=== PATIENT | female | born 1970 | race Caucasian/White ===

== ENCOUNTER → 2020-10-14 11:48 | Outpatient (BNVA) | payer OTHER, SELFPAY | PROVIDERS: Visit Provider Nurse Practitioner Family | DX: Z20.822 Contact with and (suspected) exposure to COVID-19 (principal) | CPT/HCPCS: 87635 ==

== ENCOUNTER 2022-10-15 07:37 | Outpatient (CLI) | payer MEDICAID, SELFPAY ==
--- NOTE | 2022-10-15 07:52 | MM_ITS ---
WS: [id number] Bilateral screening 3D tomosynthesis digital mammogram, 10/15/2022 Clinical Data: SCREENING Comparison: None. Findings: The breast parenchymal pattern shows fibroglandular tissue. No spiculated masses or clustered calcifi cations are seen. There are no secondary signs of carcinoma. There is asymmetric tissue in the upper outer quadrant of the right breast. MM/[place] [id number] Impression: 1. Asymmetric breast tissue in upper-outer quadrant of the right breast and re commend compression views in the CC and ML projection, also right breast ultras ound. 2. Negative left breast BIRADS: 0-Incomplete: Need additional imaging evaluation FOLLOW UP: See Report The CAD unloading checker was used.
== END 2022-10-15 07:38 | disposition home or self-care (01) ==
PROVIDERS: PCP Nurse Practitioner Family; Visit Provider Nurse Practitioner Family
DX: Z12.31 Encounter for screening mammogram for malignant neoplasm of breast (principal); N64.89 Other specified disorders of breast
CPT/HCPCS: 77063; 77067

== ENCOUNTER 2022-10-18 09:23 | Outpatient (CLI) | payer MEDICAID, SELFPAY ==
--- NOTE | 2022-10-18 09:40 | CT_ITS ---
WS: [id number] LDCT LUNG CANCER SCREENING TECHNIQUE: Noncontrast CT of the chest with coronal and sagittal reformatted images. CLINICAL INFORMATION: NICOTINE DEPENDENCE COMPARISON: None. DLP: 51.31 mGy.cm DIvol: Mean CTDIvol: 0.80 (mGy) All CT scans at [facility] use at least one of these dose optimization techniques: automat ed exposure control; mA and/or kV adjustment per patient size (includes targeted exams where dose is matched to clinical indication); or iterative reconstruction. FINDINGS: Normal caliber thoracic aorta. No mediastinal or hilar lymphadenopathy. No axillary lymphadenopathy. Cholecystectomy clips. Postoperative changes gastric bypass. Surgical clips in the upper abdomen. Adr enal glands are normal. No acute pulmonary infiltrates. Numerous scattered bilateral subcentimeter pulmonary nodules largest measuring 5.3 mm LEFT upper lobe. No suspicious pulmonary parenchymal abnormalities. Small amount of cystic bronchiectasis in RIGHT upp er lobe anteromedially. Noncalcified nodule LEFT upper lobe anteriorly medially measuring 3.8 mm. Non calcified nodule LEFT lower lobe measuring 3.8 mm. A few tiny noncalcified nodules RIGHT upper lobe. 3.2 mm noncalcified nodule RIGHT upper lobe laterally. A few noncalcified subcentimeter nodules RIGHT lower lobe CT/CT lung screening [id number] IMPRESSION: LUNG-RADS: 2-Benign Appearance or Behavior FOLLOW UP: 12 Month: Continue annual screening with LDCT
== END 2022-10-18 09:24 | disposition home or self-care (01) ==
LOC: RAD 09:24
PROVIDERS: PCP Nurse Practitioner Family; Visit Provider Nurse Practitioner Family
DX: Z12.2 Encounter for screening for malignant neoplasm of respiratory organs (principal); F17.210 Nicotine dependence, cigarettes, uncomplicated
CPT/HCPCS: 71271

== ENCOUNTER 2022-11-18 09:59 | Outpatient (CLI) | payer MEDICAID, SELFPAY ==
--- NOTE | 2022-11-18 10:08 | MM_ITS ---
WS: [id number] Right breast diagnostic 3D tomosynthesis digital mammogram, 11/18/2022 Clinical Data: ABNORMAL MAMMO Comparison: Mammogram, 10/15/2022 Findings: The additional views of the upper outer quadrant right breast showed only asymmetric breast tissue. T here were no spiculated masses or clustered calcifications. There were no secondary signs of carcinom a. MM/[place] [id number] Impression: 1. Asymmetric breast tissue in upper outer quadrant of the right breast. 2. Right breast ultrasound will be performed. BIRADS: 2-Benign FOLLOW UP: See Report The CAD photo checker was used.
--- NOTE | 2022-11-18 10:08 | US_ITS ---
WS: [id number] Right breast ultrasound, 11/18/2022 Clinical Data: ABNORMAL MAMMO Comparison: Right breast mammogram, 11/18/2022 Findings: The upper outer quadrant of the right breast was scanned from the 9:00 to the 12:00 position. Only n ormal breast tissue is seen. There were no cysts or masses. No abnormal tissue was noted. US/US breast RT limited* [id number] Impression: 1. Asymmetric breast tissue in upper outer quadrant. 2. Recommend return to annual screening mammograms. BIRADS: 2-Benign FOLLOW UP: 1 Year Follow-up
== END 2022-11-18 10:00 | disposition home or self-care (01) ==
LOC: RAD 10:01
PROVIDERS: PCP Nurse Practitioner Family; Visit Provider Nurse Practitioner Family
DX: R92.8 Other abnormal and inconclusive findings on diagnostic imaging of breast (principal)
CPT/HCPCS: 76642; 77061; G0279

== ENCOUNTER 2023-08-29 10:41 | Oncology outpatient (recurring) (ONCR) | payer MEDICAID, SELFPAY ==
[2023-08-29 10:57] VITALS: BP 113/64; PULSE 62; RESP 16; TEMP 36.3; O2SAT 96
[2023-08-29] MEDS: sodium chloride 0.9% 250 ML 35 ML IV (11:27)
[2023-08-29 14:18] VITALS: BP 116/74; PULSE 71; RESP 16; TEMP 36.4; O2SAT 97
== END 2023-09-06 23:59 | disposition home or self-care (01) ==
LOC: ONCMED 10:42
PROVIDERS: PCP Nurse Practitioner Family; Visit Provider Internal Medicine Medical Oncology
DX: D50.9 Iron deficiency anemia, unspecified (principal)
CPT/HCPCS: 96365; J1756; J7050

== ENCOUNTER 2023-09-12 07:45 | Oncology outpatient (recurring) (ONCR) | payer MEDICAID, SELFPAY ==
[2023-09-12 08:14] VITALS: BP 114/76; PULSE 78; RESP 16; TEMP 36.8; O2SAT 97
[2023-09-12] MEDS: iron sucrose 100 MG in sodium chloride 0.9% (100 ml) 100 ML 200 MG IV (08:52)
[2023-09-12 09:30] VITALS: BP 103/67; PULSE 76; RESP 16; TEMP 37.1; O2SAT 96
== END 2023-10-07 23:59 | disposition home or self-care (01) ==
LOC: ONCMED 07:46
PROVIDERS: PCP Nurse Practitioner Family; Visit Provider Internal Medicine Medical Oncology
DX: D50.9 Iron deficiency anemia, unspecified (principal)
CPT/HCPCS: 96365; J1756

== ENCOUNTER 2023-10-19 16:03 | Outpatient (CLI) | payer MEDICAID, SELFPAY ==
--- NOTE | 2023-10-19 16:18 | CT_ITS ---
WS: [id number] CT CHEST CT-HIGH RESOLUTION, NONCONTRAST. HISTORY: Interstitial lung disease. Technique: High-resolution chest CT is performed in inspiration, expiration, supine and prone positio wilfredo. All CT scans at [facility] use at least one of these dose optimization techniques: automated exposure control; mA and/or kV adjustment per patient size (includes targeted exams where dose is mat ched to clinical indication); or iterative reconstruction. DLP: 860.92 mGy.cm COMPARISON: 10/18/2022 Findings: Lungs are well aerated and normally expanded. There are several scattered pulmonary nodules with the largest being 3 to 4 mm. These were also present on the study of 10/18/2022 without increase in size. Anterior RIGHT upper lobe hazy attenuation and mild bronchiectasis is reidentified. There i s an additional nodule at the lingula with groundglass attenuation. No honeycombing and there is no traction bronchiectasis in the lower lung olsen. Focal bronchiectasi s is reidentified in the anterior medial RIGHT upper lobe. No pleural effusion. Mild atherosclerosis aorta. Normal size pulmonary artery. No adenopathy identified on this unenhanced exam. During expiration there is diffuse volume loss with no air trapping. Prior cholecystectomy. LEFT renal pelvis is rotated anteriorly. There is a large extrarenal pelvis on the LEFT additional surgical changes in the LEFT upper abdomen are probably related to a gastric byp ass surgery. Mild thoracic spondylosis. CT/CT chest wo con [id number] Impression: 1. No honeycombing reticulonodular opacifications. 2. Unchanged focal bronchiectasis in the medial anterior RIGHT upper lobe. Thi s may be from a prior pneumonia. No additional bronchiectasis. 3. No adenopathy. 4. No air trapping. 5. Prior cholecystectomy and surgical changes associated the stomach. May be f rom gastric bypass surgery. 6. Multiple subcentimeter pulmonary nodules scattered throughout both lungs wi th no change since 10/18/2022.
== END 2023-10-19 16:04 | disposition home or self-care (01) ==
LOC: RAD 16:03
PROVIDERS: PCP Nurse Practitioner Family; Visit Provider Nurse Practitioner Family
DX: R91.8 Other nonspecific abnormal finding of lung field (principal); J41.0 Simple chronic bronchitis; Z72.0 Tobacco use; J47.9 Bronchiectasis, uncomplicated; Z98.890 Other specified postprocedural states; M47.814 Spondylosis without myelopathy or radiculopathy, thoracic region
CPT/HCPCS: 71250

== ENCOUNTER 2024-02-16 13:16 | Outpatient (CLI) | payer MEDICAID, SELFPAY ==
[2024-02-20 21:06] LABS: Beef (27) IgE 1.63 kU/L; Beef Class 2; Lamb (F88) IgE 1.27 kU/L; Lamb Class 2; Pork (F26) IgE 0.94 kU/L; Pork Class 2
== END 2024-02-16 13:17 | disposition home or self-care (01) ==
PROVIDERS: PCP Nurse Practitioner Family; Visit Provider Nurse Practitioner Family
DX: Z91.014 Allergy to mammalian meats (principal)
CPT/HCPCS: 36415; 86003; 86008

== ENCOUNTER 2024-05-07 08:48 | Outpatient (CLI) | payer MEDICAID, SELFPAY ==
--- NOTE | 2024-05-07 08:56 | MM_ITS ---
WS: [email or web address] BILATERAL SCREENING DIGITAL TOMOSYNTHESIS MAMMOGRAM WITH CAD HISTORY: SCREENING COMPARISON: 11/18/2022, 10/15/2022 Bilateral CC and MLO views with tomosynthesis and synthetic mammography submitted. Computer aided det ection analyzed. Breast composition: There are scattered areas of fibroglandular density. No suspicious masses, microc alcifications or architectural distortion. Dense band of fibroglandular tissue upper outer quadrant R IGHT breast is stable. No new area of suspicion or calcification. No distortion. MM/MM scr BI tomosynthesis [id number] IMPRESSION: BI-RADS: 2 - Benign. FOLLOW UP: 1 Year Follow-up
== END 2024-05-07 08:49 | disposition home or self-care (01) ==
LOC: RAD 08:49
PROVIDERS: PCP Nurse Practitioner Family; Visit Provider Nurse Practitioner Family
DX: Z12.31 Encounter for screening mammogram for malignant neoplasm of breast (principal); R92.323 Mammographic fibroglandular density, bilateral breasts
CPT/HCPCS: 77063; 77067